=== PATIENT | female | born 1995 | race African-American/Black ===

== ENCOUNTER 2017-01-26 13:15 | Observation (INO) | payer OTHER ==
[~2017-01-26] VITALS: Ht 170.2 cm; Wt 55.3 kg
[2017-01-26] MEDS ORDERED: ONDANSETRON HCL 4 MG/2 ML VIAL IV PRN (14:00)
[2017-01-26] MEDS ORDERED: LACTATED RINGER'S 1,000 ML IV SCH (14:23)
[2017-01-26] MEDS ORDERED: LACTATED RINGER'S 1,000 ML IV ONE (14:23)
[2017-01-26] MEDS ORDERED: NALBUPHINE HCL 10 MG/1ml INJECTION ONE (14:34)
[2017-01-26 14:45] LABS: Basophils # (auto) 0 uL; Basophils % (auto) 0.1 % (0.0-2.0); Eosinophils # (auto) 0 uL; Hematocrit 29.7 % (36.0-46.0); Hemoglobin 10.1 g/dL (12.2-16.2); Lymphocytes # (auto) 1.9 uL; Lymphocytes % (auto) 15.8 % (10.0-50.0); Mean Corpuscular Hemoglobin 30.3 pg (28.0-32.0); Mean Corpuscular Hgb Conc. 34.1 g/dL (32.0-36.0); Mean Corpuscular Volume 88.7 fL (80.0-100.0); Mean Platelet Volume 7.4 fL (7.4-10.4); Monocytes # (auto) 0.7 uL; Monocytes % (auto) 5.8 % (0.0-12.0); Neutrophils # (auto) 9.5 uL; Neutrophils % (auto) 78.3 % (37.0-80.0); Platelet Count (auto) 294 10^3/uL (140-450); White Blood Cell 12.1 10^3/uL (4.4-10.8)
[2017-01-26] MEDS ORDERED: NALBUPHINE HCL 10 MG/1ml INJECTION IV PRN (14:45)
[2017-01-26 15:09] LABS: Albumin 3.3 g/dL (3.4-5.0); Bilirubin, Total 0.8 mg/dL (0.2-1.0); Calcium 8.8 mg/dL (8.5-10.1); Potassium 3.6 mmol/L (3.5-5.1); Total Protein 7.4 g/dL (6.4-8.2)
[2017-01-26] MEDS ORDERED: MORPHINE SULF INJ 2 MG/ML SYRINGE 1ML ONE (15:56)
[2017-01-26 15:59] LABS: INR 0.95 (0.9-1.15); Partial Thromboplastin Time 23.2 sec (22.64-33.71); Prothrombin Time 10.3 sec (9.37-12.3)
[2017-01-26] MEDS ORDERED: MORPHINE SULF INJ 2 MG/ML SYRINGE 1ML IV PRN (16:00)
[2017-01-26] MEDS ORDERED: TERBUTALINE SULFATE 1 MG/ML 1ML VIAL SC ONE (17:39)
== END 2017-01-26 18:19 | disposition home or self-care (01) | DRG 781 ==
LOC: LDRP 13:15
PROVIDERS: ADMIT Obstetrics & Gynecology; ATTEND Obstetrics & Gynecology
DX: O26.892 Other specified pregnancy related conditions, second trimester (principal); R10.13 Epigastric pain; Z3A.25 25 weeks gestation of pregnancy; Z91.19 Patient's noncompliance with other medical treatment and regimen
CPT/HCPCS: 36415; 59025; 76705; 76805; 80053; 81002; 85025; 85610; 85730; 96361; 96374; G0378; J2270; J2300; J2405; J3105

== ENCOUNTER 2017-02-14 08:40 | Observation (INO) | payer OTHER ==
[2017-02-14] MEDS ORDERED: LACTATED RINGER'S 1,000 ML IV ONE (08:53)
[2017-02-14] MEDS ORDERED: ONDANSETRON HCL 4 MG/2 ML VIAL ONE (08:57)
[2017-02-14] MEDS ORDERED: NALBUPHINE HCL 10 MG/1ml INJECTION ONE (08:57)
[2017-02-14] MEDS ORDERED: NALBUPHINE HCL 10 MG/1ml INJECTION IV PRN (09:00)
[2017-02-14] MEDS ORDERED: ONDANSETRON HCL 4 MG/2 ML VIAL IV PRN (09:00)
[2017-02-14] MEDS ORDERED: ceFAZolin 1GM/50ML D5W 50 ML IV ONE (09:15)
[2017-02-14] MEDS ORDERED: MAGNESIUM SULFATE 40MG/ML 1,000 ML IV ONE (09:16)
[2017-02-14] MEDS ORDERED: BETAMETHASONE ACET (6MG/ML) 5ML VIAL ONE (09:16)
[2017-02-14] MEDS ORDERED: MAGNESIUM SULFATE 40MG/ML 1,000 ML IV SCH (09:23)
[2017-02-14] MEDS ORDERED: BETAMETHASONE ACET (6MG/ML) 5ML VIAL IM ONE (09:30)
[2017-02-14 10:14] LABS: Basophils # (auto) 0 uL; Basophils % (auto) 0.3 % (0.0-2.0); Eosinophils # (auto) 0 uL; Hemoglobin 10.2 g/dL (12.2-16.2); Lymphocytes # (auto) 2.2 uL; Lymphocytes % (auto) 22.2 % (10.0-50.0); Mean Corpuscular Hemoglobin 30.5 pg (28.0-32.0); Mean Corpuscular Hgb Conc. 34.2 g/dL (32.0-36.0); Mean Corpuscular Volume 89.2 fL (80.0-100.0); Mean Platelet Volume 7.3 fL (7.4-10.4); Monocytes # (auto) 0.5 uL; Monocytes % (auto) 5.4 % (0.0-12.0); Neutrophils # (auto) 7.1 uL; Neutrophils % (auto) 72.1 % (37.0-80.0); Platelet Count (auto) 351 10^3/uL (140-450); Red Cell Distribution Width 13.4 % (11.6-16.0); White Blood Cell 9.9 10^3/uL (4.4-10.8)
[2017-02-14 10:24] LABS: Amylase 55 U/L (25-115)
[2017-02-14 10:26] LABS: INR 0.96 (0.9-1.15); Partial Thromboplastin Time 25.6 sec (22.64-33.71); Prothrombin Time 10.4 sec (9.37-12.3)
[2017-02-14 10:30] LABS: Albumin 3.1 g/dL (3.4-5.0); BUN/Creatinine Ratio 12.3; Bilirubin, Total 0.7 mg/dL (0.2-1.0); Potassium 3.6 mmol/L (3.5-5.1); Total Protein 7.5 g/dL (6.4-8.2); Uric Acid 3.3 mg/dL (2.6-6.0)
[2017-02-14 11:12] LABS: Urine Bilirubin Negative (Negative); Urine Blood Negative /uL (Negative); Urine Color Yellow (Yellow); Urine Glucose Normal (Normal); Urine Mucus MODERATE (None Seen); Urine Nitrite Negative (Negative); Urine RBC 5 /hpf (0 - 4); Urine Squamous Epithelial Cell FEW /hpf (<5); Urine pH 6.5 (5.0-8.0)
[2017-02-14 11:13] LABS: Urine Ketone 4+ (Negative)
[2017-02-14] MEDS ORDERED: ceFAZolin 1GM/50ML D5W 50 ML IV SCH (14:00)
== END 2017-02-14 11:30 | disposition home or self-care (01) | DRG 781 ==
LOC: LDRP 08:40
PROVIDERS: ADMIT Obstetrics & Gynecology; ATTEND Obstetrics & Gynecology
DX: O26.893 Other specified pregnancy related conditions, third trimester (principal); R10.13 Epigastric pain; K21.9 Gastro-esophageal reflux disease without esophagitis; Z3A.28 28 weeks gestation of pregnancy; F12.90 Cannabis use, unspecified, uncomplicated
CPT/HCPCS: 36415; 59025; 76705; 76805; 80053; 80307; 81001; 81002; 82150; 83690; 84550; 85025; 85610; 85730; 96361; 96365; 96366; 96368; G0378; J0690; J0702; J2300; J2405; J3475; 96372

== ENCOUNTER 2019-11-04 11:16 | Emergency (ER) | payer OTHER ==
[~2019-11-04] VITALS: Ht 160 cm; Wt 75.3 kg
[2019-11-04 13:12] LABS: Basophils # (auto) 0 uL; Basophils % (auto) 0.4 % (0.0-2.0); Eosinophils # (auto) 0 uL; Eosinophils % (auto) 0.1 % (0.0-7.0); Hematocrit 37.9 % (36.0-46.0); Hemoglobin 12.8 g/dL (12.2-16.2); Lymphocytes # (auto) 1.4 uL; Lymphocytes % (auto) 16.8 % (10.0-50.0); Mean Corpuscular Hemoglobin 29.5 pg (28.0-32.0); Mean Corpuscular Hgb Conc. 33.7 g/dL (32.0-36.0); Mean Corpuscular Volume 87.5 fL (80.0-100.0); Monocytes # (auto) 0.6 uL; Monocytes % (auto) 6.7 % (0.0-12.0); Neutrophils # (auto) 6.5 uL; Nucleated Red Blood Cells % 0.1 %; Platelet Count (auto) 286 10^3/uL (140-450); Red Blood Cells 4.33 10^6/uL (4.0-5.20); Red Cell Distribution Width 13.8 % (11.8-14.3); White Blood Cell 8.5 10^3/uL (4.4-10.8)
[2019-11-04 13:30] LABS: Albumin 3.5 g/dL (3.4-5.0); Calcium 8.9 mg/dL (8.5-10.1); Potassium 3.7 mmol/L (3.5-5.1)
[2019-11-04 13:33] LABS: Bilirubin, Total 0.8 mg/dL (0.2-1.0); Total Protein 8.3 g/dL (6.4-8.2)
[2019-11-04] MEDS ORDERED: MORPHINE SULFATE 4 MG/ML SYR/VIAL IV ONE (13:45)
[2019-11-04] MEDS ORDERED: ONDANSETRON HCL 4 MG/2 ML VIAL IV ONE (13:45)
[2019-11-04] MEDS ORDERED: MORPHINE SULF INJ 2 MG/ML SYRINGE 1ML IV ONE (14:15)
[2019-11-04 14:43] LABS: Amphetamine Screen, Urine POSITIVE (NEGATIVE); Barbiturate Scree,Urine NEGATIVE (NEGATIVE); Benzodiazephine Screen, Urine NEGATIVE (NEGATIVE); Cannabinoid Screen, Urine NEGATIVE (NEGATIVE); Cocaine Screen, Urine POSITIVE (NEGATIVE); Opiate Scree,Urine NEGATIVE (NEGATIVE); Phencyclidine Screen, Urine NEGATIVE (NEGATIVE)
[2019-11-04 15:33] VITALS: BP 132/72
== END 2019-11-04 16:54 | disposition home or self-care (01) ==
LOC: EDBD 11:16 → EDUNIT# 11:16 → ER 11:16
DX: O26.891 Other specified pregnancy related conditions, first trimester (principal); F12.10 Cannabis abuse, uncomplicated; F14.10 Cocaine abuse, uncomplicated; F15.10 Other stimulant abuse, uncomplicated; Z3A.13 13 weeks gestation of pregnancy
CPT/HCPCS: 36415; 76801; 80053; 80307; 80320; 84702; 85025; 96374; 96375; 99284; J2270; J2405